=== PATIENT | female | born 1965 | race African-American/Black ===

== ENCOUNTER → 2016-09-04 | Outpatient (CLI) | payer BC ==
[~2016-09-04] MED LIST: COLACE 100100 MG/CAP PO; FLONASE NASAL S16 GM; GLUCOTROL XL10 MG PO; HCTZ12.5TAB PO; IRON325 M1 PO; MEVACOR10 MG PO; NORCO 325 MG-51 TAB PO; TOPROL XL 25MG25 MG PO; WELLBUTRIN 75MG75 MG PO; ZESTRIL40 MG PO
== END ==
LOC: BHSO 14:34
DX: F33.42 Major depressive disorder, recurrent, in full remission (principal)

== ENCOUNTER → 2016-10-09 | Outpatient (CLI) | payer BC | LOC: BHSO 14:16 | DX: F33.42 Major depressive disorder, recurrent, in full remission (principal) ==

== ENCOUNTER → 2017-01-15 | Outpatient (CLI) | payer BC | LOC: BHSO 14:36 | DX: F41.1 Generalized anxiety disorder (principal) ==

== ENCOUNTER → 2017-04-16 | Outpatient (CLI) | payer BC | LOC: BHSO 14:36 | DX: F41.1 Generalized anxiety disorder (principal) ==

== ENCOUNTER → 2017-06-18 | Outpatient (CLI) | payer BC | LOC: BHSO 09:43 | DX: F41.1 Generalized anxiety disorder (principal) ==

== ENCOUNTER → 2017-07-12 | Outpatient (CLI) | payer BC ==
[2017-07-12 14:15] LABS: BASO % 0.7 % (0.0-2.0); EOS # 0.1 (0.0-0.7); GRAN # 1.7 (1.4-6.5); HEMATOCRIT 43.2 % (37.0-47.0); HEMOGLOBIN 13.9 g/dl (12.5-16.0); LYMPH # 2.1 (1.2-3.4); LYMPH % 47.9 % (20.0-51.0); MEAN CELL VOLUME 93 fl (80.0-100.0); MEAN CORPUSCULAR HEMOGLOBIN 30 pg (27.0-31.0); MEAN CORPUSCULAR HGB CONC 32 g/dl (33.0-37.0); MEAN PLATELET VOLUME 10.1 fl (7.4-10.4); MONO # 0.4 (0.1-0.6); MONO % 9.4 % (1.7-9.3); PLATELET COUNT 242 K/mm3 (130-400); RED BLOOD COUNT 4.65 M/mm3 (4.10-5.30); WHITE BLOOD COUNT 4.4 K/mm3 (4.8-10.8)
[2017-07-12 14:40] LABS: ADJUSTED CALCIUM 10.1 mg/dL (8.4-10.2); ALBUMIN 4.1 gm/dL (3.5-5.0); BILIRUBIN,TOTAL 0.4 mg/dL (0.0-1.0); CALCIUM 10.2 mg/dL (8.4-10.2); CHOLESTEROL RISK RATIO 4.4; CREATININE, serum 0.8 mg/dL (0.52-1.25); POTASSIUM 4.1 mmol/L (3.4-5.0); TOTAL PROTEIN 7.5 gm/dL (6.4-8.2)
== END ==
LOC: COL.LAB 09:28
PROVIDERS: Family Medicine
DX: Z01.419 Encounter for gynecological examination (general) (routine) without abnormal findings (principal); E11.9 Type 2 diabetes mellitus without complications; E78.5 Hyperlipidemia, unspecified

== ENCOUNTER → 2017-07-30 | Outpatient (CLI) | payer BC | LOC: BHSO 14:33 | DX: F41.1 Generalized anxiety disorder (principal) ==

== ENCOUNTER → 2017-10-29 | Outpatient (CLI) | payer BC | LOC: BHSO 14:40 | DX: F41.1 Generalized anxiety disorder (principal) | CPT/HCPCS: G0463 ==

== ENCOUNTER → 2018-01-28 | Outpatient (CLI) | payer BC | LOC: BHSO 14:28 | DX: F33.41 Major depressive disorder, recurrent, in partial remission (principal) | CPT/HCPCS: G0463 ==

== ENCOUNTER → 2018-04-12 | Outpatient (CLI) | payer BC | LOC: COL.LAB 09:50 | DX: M79.606 Pain in leg, unspecified (principal); Z78.9 Other specified health status ==

== ENCOUNTER → 2018-05-05 | Outpatient (CLI) | payer BC | LOC: BHSO 08:55 | DX: F41.1 Generalized anxiety disorder (principal) | CPT/HCPCS: G0463 ==

== ENCOUNTER → 2018-05-05 | Outpatient (CLI) | payer BC | LOC: COL.RAD 10:32 | DX: M17.12 Unilateral primary osteoarthritis, left knee (principal) ==

== ENCOUNTER 2018-06-02 08:45 | Outpatient (RCR) | payer BC | END 2018-07-25 08:14 | disposition home or self-care (01) | LOC: WSPT 08:45 | DX: M25.562 Pain in left knee (principal); Z79.82 Long term (current) use of aspirin; Z79.899 Other long term (current) drug therapy | CPT/HCPCS: G0283-GP ==

== ENCOUNTER → 2018-06-16 | Outpatient (CLI) | payer BC | LOC: BHSO 09:30 | DX: F41.1 Generalized anxiety disorder (principal) | CPT/HCPCS: G0463 ==

== ENCOUNTER → 2018-06-28 | Outpatient (CLI) | payer BC | LOC: COL.RAD 12:20 | DX: S83.272A Complex tear of lateral meniscus, current injury, left knee, initial encounter (principal); M94.262 Chondromalacia, left knee; M17.12 Unilateral primary osteoarthritis, left knee ==

== ENCOUNTER 2018-07-25 07:57 | Outpatient (RCR) | payer BC | END 2018-08-02 08:58 | disposition home or self-care (01) | LOC: WSC 07:57 | DX: S83.207D Unspecified tear of unspecified meniscus, current injury, left knee, subsequent encounter (principal); W19.XXXD Unspecified fall, subsequent encounter ==

== ENCOUNTER 2018-08-24 11:00 | Outpatient (RCR) | payer BC ==
[2018-09-04] MEDS ORDERED: LAMICTAL 25MG T25 MG PO (13:05)
[2018-09-04] MEDS ORDERED: ASPIRIN E.C. 8181 MG PO (13:06)
== END 2018-10-31 | disposition home or self-care (01) ==
LOC: WSC
DX: Z47.89 Encounter for other orthopedic aftercare (principal)

== ENCOUNTER 2018-09-04 11:05 | Observation (INO) | payer BC ==
[~2018-09-04] VITALS: Ht 162.6 cm; Wt 133.8 kg
[2018-09-04] VITALS (7 sets, daily range): BP systolic 146–170; BP diastolic 75–111; PULSE 83–99; TEMP 98.2–98.8
--- NOTE | 2018-09-04 12:00 | NUR ---
PATIENT ARRIVED TO ROOM 322-2.
--- NOTE | 2018-09-04 12:30 | NUR ---
PATIENT TAKEN TO RADIOLOGY FOR KUB SCAN VIA WHEELCHAIR BY SURGICAL STAFF. WILL WAIT FOR PATIENT TO RETURN TO ROOM 322-2.
--- NOTE | 2018-09-04 12:50 | NUR ---
PATIENT ARRIVED BACK TO ROOM 322-2 VIA WHEELCHAIR BY RADIOLOGY.
[2018-09-04] MEDS ORDERED: LAMICTAL 25MG T25 MG PO (13:05)
[2018-09-04] MEDS ORDERED: ASPIRIN E.C. 8181 MG PO (13:06)
--- NOTE | 2018-09-04 13:40 | NUR ---
ADMISSION ASSESSMENT B COMPLETE. VSS. NS TO GRAVITY TUBING INFUSING TO RIGHT AC IV. CONSENT SIGNED AND ON PATIENT CHART. PATIENT TAKEN TO PERIOP VIA CART BY KIRSTY LOMBARDI. WILL WAIT FOR ARRIVAL BACK TO ROOM 322-2.
--- NOTE | 2018-09-04 16:45 | NUR ---
PATIENT POST-OP VSS. PATIENT A&O. PATIENT EATING, DRINKING & VOIDING WITHOUT DIFFICULTY. PATIENT'S RIGHT AC INT DC'D PER PENDING DISCHARGE. PATIENT TOLERATED WELL.
--- NOTE | 2018-09-04 17:00 | NUR ---
PATIENT TAKEN TO PERSONAL VEHICLE VIA WHEELCHAIR BY SURGICAL STAFF. PATIENT DISCHARGED.
== END 2018-09-04 17:00 | disposition home or self-care (01) ==
LOC: MEDICAL 11:05 → SURG 12:07
PROVIDERS: ADMIT Psychiatry & Neurology Psychiatry
DX: N20.1 Calculus of ureter (principal); D64.9 Anemia, unspecified; I10 Essential (primary) hypertension; G47.33 Obstructive sleep apnea (adult) (pediatric); Z87.440 Personal history of urinary (tract) infections; Z91.010 Allergy to peanuts; Z79.82 Long term (current) use of aspirin; Z83.3 Family history of diabetes mellitus
CPT/HCPCS: C1769; G0378; J0690; J1100; J1940; J2405; J2704; J3010; J7030; Q9967

== ENCOUNTER → 2018-09-09 | Outpatient (CLI) | payer BC ==
[~2018-09-09] MED LIST changes: +ASPIRIN E.C. 8181 MG PO; +LAMICTAL 25MG T25 MG PO
== END ==
LOC: BHSO 14:01
DX: F33.42 Major depressive disorder, recurrent, in full remission (principal)
CPT/HCPCS: G0463

== ENCOUNTER → 2018-10-21 | Outpatient (CLI) | payer BC | LOC: BHSO 15:30 | DX: F33.41 Major depressive disorder, recurrent, in partial remission (principal) | CPT/HCPCS: G0463 ==

== ENCOUNTER → 2019-03-10 | Outpatient (CLI) | payer BC | LOC: BHSO 15:19 | DX: F41.1 Generalized anxiety disorder (principal) | CPT/HCPCS: G0463 ==

== ENCOUNTER → 2019-05-11 | Outpatient (CLI) | payer BC ==
[2019-05-11 15:57] LABS: BASO % 0.4 % (0.0-2.0); EOS # 0.1 (0.0-0.7); GRAN # 1.9 (1.4-6.5); GRAN % 39.8 % (42.2-75.2); HEMATOCRIT 42.6 % (37.0-47.0); HEMOGLOBIN 13.6 g/dl (12.5-16.0); LYMPH # 2.3 (1.2-3.4); LYMPH % 48.9 % (20.0-51.0); MEAN CELL VOLUME 92 fl (80.0-100.0); MEAN CORPUSCULAR HEMOGLOBIN 29 pg (27.0-31.0); MEAN CORPUSCULAR HGB CONC 32 g/dl (33.0-37.0); MEAN PLATELET VOLUME 9.3 fl (7.4-10.4); MONO # 0.4 (0.1-0.6); MONO % 7.7 % (1.7-9.3); PLATELET COUNT 244 K/mm3 (130-400); RED BLOOD COUNT 4.62 M/mm3 (4.10-5.30); REDCELL DISTRIBUTION WIDTH-CV 12.1 % (11.5-14.5)
== END ==
LOC: COL.LAB 15:26
PROVIDERS: Family Medicine
DX: D64.9 Anemia, unspecified (principal); M79.606 Pain in leg, unspecified

== ENCOUNTER → 2019-09-15 | Outpatient (CLI) | payer BC | LOC: BHSO 15:17 | DX: F41.1 Generalized anxiety disorder (principal) | CPT/HCPCS: G0463 ==

== ENCOUNTER → 2020-03-14 | Outpatient (CLI) | payer BC | LOC: BHSO 15:16 | DX: F41.1 Generalized anxiety disorder (principal) | CPT/HCPCS: G0463 ==

== ENCOUNTER 2022-09-15 13:43 | Day surgery (SDC) | payer BC ==
[~2022-09-15] VITALS: Ht 162.6 cm; Wt 122.1 kg
[2022-09-15] MEDS ORDERED: CRESTOR 10MG10 MG PO (15:04)
[2022-09-15] MEDS ORDERED: OZEMPIC0.25 MG/0. SQ (15:04)
[2022-09-15] MEDS ORDERED: COZAAR100 MG PO (15:06)
[2022-09-15] MEDS ORDERED: OZEMPIC1 MG/0.71 SQ (15:06)
[2022-09-15] MEDS ORDERED: SINGULAIR 110 MG/TAB PO (15:07)
[2022-09-15] MEDS ORDERED: HCTZ 25MG TAB25 MG PO (15:07)
[2022-09-15] MEDS ORDERED: WELLBUTRIN XL300 M1 PO (15:08)
[2022-09-15] MEDS ORDERED: D3-5050000 IU PO (15:09)
[2022-09-15] MEDS ORDERED: PYRIDIUM 100MG100 MG PO (15:52)
[2022-09-15 16:50] VITALS: BP 140/76; PULSE 76; TEMP 97.9
[2022-09-15 16:51] VITALS: TEMP 98.7
[2022-09-15 17:05] VITALS: BP 144/85; PULSE 78
[2022-09-15 17:20] VITALS: BP 151/79; PULSE 80
--- NOTE | 2022-09-15 17:35 | NUR ---
1650 RETURNS TO ROOM 1 PER CART. AWAKE, ALERT. RESP CLEAR, UNLABORED. HOB ELEVATED 45 DEGREES. VITAL SIGNS OBTAINED. DENIES PAIN OR URINARY URGENCY. CALL LIGHT AT SIDE. IN ROOM 1705 TOLERATES PO JUICE WITHOUT NAUSEA. 1720 DISCHARGE INSTRUCTIONS REVIEWED. PATIENT VERBALIZES UNDERSTANDING. COPY PROVIDED IN DISCHARGE FOLDER. 1723 AMBULATES TO BATHROOM WITH STANDBY ASSIST. VOIDS WITHOUT DIFFICULTY. 1725 SITS IN CHAIR. DRESSES SELF
== END 2022-09-15 17:35 | disposition home or self-care (01) ==
LOC: SDCO 13:43
DX: N13.2 Hydronephrosis with renal and ureteral calculous obstruction (principal); E11.9 Type 2 diabetes mellitus without complications; Z79.85 Long-term (current) use of injectable non-insulin antidiabetic drugs; I10 Essential (primary) hypertension; G47.33 Obstructive sleep apnea (adult) (pediatric); G62.9 Polyneuropathy, unspecified; Z79.899 Other long term (current) drug therapy
CPT/HCPCS: C1769; J0690; J1100; J1885; J2405; J2704; J3010; Q9967